=== PATIENT | male | born 1955 | race Caucasian/White ===

== ENCOUNTER 2017-07-08 07:35 | Outpatient (CLI) | payer MEDICARE, OTHER | END 2017-07-08 07:36 | disposition home or self-care (01) | LOC: LAB.F 07:35 | PROVIDERS: ATTEND Physician Assistant | DX: E29.1 Testicular hypofunction (principal) | CPT/HCPCS: 36415; 81599; 84153; 84402; 84403 ==

== ENCOUNTER 2017-11-08 06:31 | Emergency (ER) | payer MEDICARE, OTHER ==
[2017-11-08 06:39] VITALS: BP 122/74
--- NOTE | 2017-11-08 07:08 | ED Physician Documentation ---
PD HPI UPPER EXT INJURY - Stated complaint Stated Complaint: R ELBOW INJ - Chief complaint Chief Complaint: Ext Problem - History obtained from History obtained from: Patient - History of Present Illness Location: Right, Elbow Type of injury: Fall (he slipped and fell last night, striking back of elbow mainly. Denies other injury. Significant pain in back of elbow, radiating down to hand and up to shoulder.) Where injury occurred: Home Timing - onset: Last night Timing - details: Abrupt onset, Still present Improved by: No: Rest Worsened by: Moving, Palpating Associated symptoms: Numbness (briefly down to little finger, then improved. Pain still there though.), Swelling (posteriorly). No: Weakness, Discolored Similar symptoms before: Has not had sx before Recently seen: Not recently seen Review of Systems Skin: denies: Abrasion (s), Laceration (s) Neurologic: denies: Focal weakness PD PAST MEDICAL HISTORY - Past Medical History Past Medical History: No Musculoskeletal: None - Past Surgical History Past Surgical History: Yes - Present Medications Home Medications: Ambulatory Orders Medication Instructions Recorded Confirmed Cyclobenzaprine [Flexeril] 10 mg PO TID PRN #20 tablet 12/15/14 HYDROcod/ACETAM 5/325 [[place] 5/325] 1 - 2 ea PO Q6H PRN #15 tablet 12/15/14 Ibuprofen [Motrin] 600 mg PO TID #30 tab 11/08/17 Oxycodone HCl/Acetaminophen 1 each PO Q6H PRN #20 tablet 11/08/17 [Percocet 5-325 mg Tablet] - Allergies Allergies/Adverse Reactions: Allergies Allergy/AdvReac Type Severity Reaction Status Date / Time No Known Drug Allergies Allergy Verified 11/08/17 06:39 - Social History Does the pt smoke?: Yes Smoking Status: Current every day smoker Does the pt drink ETOH?: Yes Does the pt have substance abuse?: No PD ED PE NORMAL - Vitals Vital signs reviewed: Yes - General General: Alert and oriented X 3, No acute distress, Well developed/nourished - HEENT HEENT: Atraumatic - Neck Neck: Supple, no meningeal sign, No bony TTP - Derm Derm: Normal color, Warm and dry - Neuro Neuro: Alert and oriented X 3, No motor deficit, No sensory deficit (can move and feel in wrist and fingers. He can extend at elbow and triceps tendon is firm but tender. Mild bursal effusion posteriorly. Not tender at radial head. ) , Normal speech Results - Vitals Vitals: Vital Signs - 24 hr 11/08/17 06:35 Temperature 36.2 C L Heart Rate 76 Respiratory 16 Rate Blood Pressure 122/74 O2 Saturation 96 Oxygen O2 Source Room air - Rads (name of study) right elbow Radiology: Prelim report reviewed (calcific tendonosis vs small avulsive flecks. Arthritic changes posteriorly. NO fracture. ) PD MEDICAL DECISION MAKING - Sepsis Event Vital Signs: Vital Signs - 24 hr 11/08/17 06:35 Temperature 36.2 C L Heart Rate 76 Respiratory 16 Rate Blood Pressure 122/74 O2 Saturation 96 Oxygen O2 Source Room air Departure - Departure Disposition: 01 Home, Self Care Clinical Impression: Accidental fall Qualifiers: Encounter type: initial encounter Qualified Code(s): W19.XXXA - Unspecified fall, initial encounter Elbow contusion Qualifiers: Encounter type: initial encounter Laterality: right Qualified Code(s): S50.01XA - Contusion of right elbow, initial encounter Condition: Stable Record reviewed to determine appropriate education?: Yes Instructions: ED Contusion Elbow Follow-Up: Sukh Cleaning MD [Credentialed Staff Provider] - [facility] [Provider Group] Prescriptions: Ibuprofen [Motrin] 600 mg PO TID #30 tab Oxycodone HCl/Acetaminophen [Percocet 5-325 mg Tablet] 1 each PO Q6H PRN #20 tablet PRN Reason: Pain Comments: Sling for the elbow as needed for comfort. Gentle range of motion a few times a day. Ibuprofen 3 times a day for the next several days to week. Add Tylenol or Percocet if needed for pain. Recheck if not improved over the next several days to week.
--- NOTE | 2017-11-08 07:16 | XRAY Report ---
Procedure Date: 11/08/2017 Accession Number: [id number] / [id number] Procedure: XR - Elbow 3 View RT CPT Code: FULL RESULT: EXAM: RIGHT ELBOW RADIOGRAPHY EXAM DATE: 11/08/2017 06:57 AM. CLINICAL HISTORY: Injury to right elbow. Fall, pain COMPARISON: None. TECHNIQUE: 3 views. FINDINGS: Bones: Olecranon spur. No fractures or bone lesions. Joints: Normal. No effusion. No subluxation. Soft Tissues: Rounded calcifications adjacent to the lateral epicondylar region and olecranon may represent calcific tendinitis versus soft tissue calcifications less likely acute avulsion . No soft tissue swelling. IMPRESSION: calcific tendinitis versus soft tissue calcification less likely acute avulsion posterior olecranon and lateral epicondyle [facility]
[2017-11-08] MEDS ORDERED: oxyCOD/ACETAMIN 5 MG/325 MG TABLET PO STA (07:32)
[2017-11-08] MEDS ORDERED: IBUPROFEN 600 MG TABLET PO STA (07:32)
== END 2017-11-08 08:19 | disposition home or self-care (01) ==
LOC: ED 06:31
DX: S50.01XA Contusion of right elbow, initial encounter (principal); W10.8XXA Fall (on) (from) other stairs and steps, initial encounter; Y92.009 Unspecified place in unspecified non-institutional (private) residence as the place of occurrence of the external cause
CPT/HCPCS: 73080; 99283; A9270

== ENCOUNTER 2018-05-18 08:11 | Emergency (ER) | payer MEDICARE ==
[2018-05-18] MEDS ORDERED: NAPROXEN 250 MG TABLET PO STA (09:17)
[2018-05-18] MEDS ORDERED: HYDROcod/ACETAM 5/325 MG TABLET PO STA (09:17)
[2018-05-18] MEDS ORDERED: diazePAM 5 MG TABLET PO STA (09:17)
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
[2018-05-18 10:46] VITALS: BP 113/90
== END 2018-05-18 10:46 | disposition home or self-care (01) ==
LOC: ED 08:11
DX: M54.41 Lumbago with sciatica, right side (principal); S76.011A Strain of muscle, fascia and tendon of right hip, initial encounter; V03.90XA Pedestrian on foot injured in collision with car, pick-up truck or van, unspecified whether traffic or nontraffic accident, initial encounter; Y93.01 Activity, walking, marching and hiking; Y92.481 Parking lot as the place of occurrence of the external cause; G89.29 Other chronic pain; Z96.649 Presence of unspecified artificial hip joint; F17.200 Nicotine dependence, unspecified, uncomplicated
CPT/HCPCS: 72100; 73502; 99283; A9270

== ENCOUNTER 2018-06-16 13:31 | Outpatient (CLI) | payer MEDICARE ==
--- NOTE | 2018-06-17 10:36 | MRI Report ---
Reason: PAIN IN RIGHT HIP Procedure Date: 06/16/2018 Accession Number: [id number] / [id number] Procedure: MRI - Hip RT W/O CPT Code: FULL RESULT: EXAM: RIGHT HIP MRI WITHOUT CONTRAST EXAM DATE: 06/16/2018 02:38 PM. CLINICAL HISTORY: Pain in right hip. COMPARISON: Radiographs 05/18/2018. TECHNIQUE: Multiplanar, multisequence T1-weighted and fluid-sensitive, small clopv-no-ecud sequences of the hip and large snano-gl-ptgy sequences of the pelvis without contrast. Other: None. FINDINGS: Bones: Susceptibility artifact from right total hip prosthesis significantly limits evaluation of that region. No gross fracture or bone lesion in the visualized portions. Mild bone marrow edema partially visualized at the lower lumbar facets. Right Hip: Significantly limited evaluation due to artifact from fixation hardware. No large joint effusion or soft tissue fluid collection visualized. Other Joints: Mild degenerative disk and moderate degenerative facet changes partially visualized lower lumbar spine. Mild degenerative changes at the sacroiliac joints. Pubic symphysis unremarkable. No joint effusion of the left hip. Evaluation of the cartilage and labrum limited on these [id number]. Musculature: Mild fatty atrophy in the posterior paraspinous musculature and gluteal musculature. Mild to moderate fatty atrophy and volume loss in the right lucrecia and minimus muscles. Focal fat at the central to posterior aspect gluteus medius muscle at the myotendinous junction, consistent with old high-grade partial-thickness tear. Mild bilateral hamstring tendinopathy, chronic. Narrowing at the ischiofemoral spaces, left greater than right. Pelvic Cavity: Scattered sigmoid diverticula. No free fluid or enlarged lymph node. Other: The visualized sciatic nerves are unremarkable. No bursitis. The subcutaneous tissues are unremarkable. IMPRESSION: 1. Susceptibility artifact from right hip prosthesis significantly limits evaluation of that region. 2. No large right hip joint effusion or soft tissue fluid collection. 3. Mild to moderate fatty atrophy and volume loss in the right gluteus lucrecia and medius muscles with likely old high-grade partial-thickness tear gluteus medius myotendinous junction. 4. Mild bilateral hamstring tendinopathy. [facility] MUSCULOSKELETAL RADIOLOGY SECTION
== END 2018-06-16 13:32 | disposition home or self-care (01) ==
LOC: DI 13:31
PROVIDERS: ATTEND Family Medicine
DX: M62.58 Muscle wasting and atrophy, not elsewhere classified, other site (principal); M67.88 Other specified disorders of synovium and tendon, other site; M25.551 Pain in right hip

== ENCOUNTER 2019-02-18 16:37 | Outpatient (CLI) | payer OTHER, MEDICARE | END 2019-02-18 16:38 | disposition short-term general hospital (02) | LOC: EMS 16:37 | PROVIDERS: ATTEND Surgery | DX: M54.2 Cervicalgia (principal); M54.9 Dorsalgia, unspecified; M25.559 Pain in unspecified hip; V53.5XXA Driver of pick-up truck or van injured in collision with car, pick-up truck or van in traffic accident, initial encounter; Y92.413 State road as the place of occurrence of the external cause | CPT/HCPCS: A0425; A0429 ==

== ENCOUNTER 2019-02-22 09:52 | Outpatient (CLI) | payer OTHER, MEDICARE ==
--- NOTE | 2019-02-23 09:11 | XRAY Report ---
Reason: PAIN IN RT KNEE Procedure Date: 02/22/2019 Accession Number: [id number] / [id number] Procedure: XR - Knee 3 View RT CPT Code: FULL RESULT: EXAM: RIGHT KNEE RADIOGRAPHY EXAM DATE: 02/22/2019 10:05 AM. CLINICAL HISTORY: Pain in right knee. COMPARISON: None. TECHNIQUE: 3 views. FINDINGS: Bones: No fractures detected. Mild osteophytic spurring of the dorsum of the patella and the margins of the tibial plateau. Joints: Mild joint space narrowing of the medial compartment of the knee. Soft Tissues: No soft tissue swelling detected. No suprapatellar joint effusion identified. Vascular calcifications dorsal to the knee. IMPRESSION: Mild degenerative changes at the knee. No fracture detected. [facility]
== END 2019-02-22 09:53 | disposition home or self-care (01) ==
LOC: DI 09:52
PROVIDERS: ATTEND Nurse Practitioner Family
DX: M17.11 Unilateral primary osteoarthritis, right knee (principal)

== ENCOUNTER 2019-04-28 13:15 | Outpatient (CLI) | payer MEDICARE ==
[~2019-04-28 13:15] MED LIST: ALBUTEROL NEB 2.5 MG/3 ML INH SCH
== END 2019-04-28 13:16 | disposition home or self-care (01) ==
LOC: RT 13:15
PROVIDERS: ATTEND Nurse Practitioner Family
DX: R06.00 Dyspnea, unspecified (principal)
CPT/HCPCS: 94060

== ENCOUNTER 2019-05-07 08:46 | Emergency (ER) | payer MEDICARE ==
[2019-05-07] MEDS ORDERED: CYCLOBENZAPRINE 10 MG TABLET PO STA (09:51)
[2019-05-07] MEDS ORDERED: IBUPROFEN 600 MG TABLET PO STA (09:51)
--- NOTE | 2019-05-07 09:52 | XRAY Report ---
Reason: pain/ previous hip replacement. Procedure Date: 05/07/2019 Accession Number: [id number] / [id number] Procedure: XR - Hip w/Pelvis 2-3V RT CPT Code: Final Report FULL RESULT: EXAM: RIGHT HIP RADIOGRAPHY EXAM DATE: 05/07/2019 09:18 AM. CLINICAL HISTORY: Pain/ previous hip replacement. COMPARISON: HIP W/PELVIS 2-3V RT 05/18/2018 9:43 AM. HIP RT W/O 06/16/2018 2:38 PM. TECHNIQUE: 2 views. FINDINGS: Bones: No acute displaced fracture. Questionable lucency in the mid right femur diaphysis measuring 1.7 cm seen only on one radiograph. No periostitis. Joints: Normal alignment of the right hip arthroplasty. Persistent stable lucency adjacent to the femoral component at the level of the trochanter. No progression of lucency. Mild to moderate narrowing of the left hip joint. Normal alignment. Degenerative changes are seen in the lumbar spine. Soft Tissues: Normal. No soft tissue swelling. IMPRESSION: 1. No acute displaced fracture noted. 2. Questionable lucency seen only on 1 radiograph measuring 1.7 cm in the mid right femur diaphysis. Correlate for region of pain. Recommend dedicated right femur radiographs. No obvious periostitis or soft tissue mass. 3. Normal alignment of the right hip arthroplasty. Persistent lucency adjacent to the femoral prosthesis component at the level of the trochanters is unchanged. No progressive lucency to suggest progressive loosening. 4. Mild to moderate left hip arthritis. Normal limit. [facility]
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
--- NOTE | 2019-05-07 11:16 | XRAY Report ---
Reason: questionable lucency seen Procedure Date: 05/07/2019 Accession Number: [id number] / [id number] Procedure: XR - Femur 2V RT CPT Code: Final Report FULL RESULT: EXAM: RIGHT FEMUR RADIOGRAPHY EXAM DATE: 05/07/2019 10:42 AM. CLINICAL HISTORY: Questionable lucency seen. COMPARISON: HIP W/PELVIS 2-3V RT 05/07/2019 9:07 AM. TECHNIQUE: 2 views. FINDINGS: Bones: No acute displaced fracture is noted. Unable to reproduce possible lucency in the mid right femur as seen on the recent hip radiograph. No definite lytic lesion, accompanying soft tissue mass or cortical breakthrough. Joints: Status post right hip arthroplasty. Mild stable lucency adjacent to the proximal right femur prosthesis component. Soft Tissues: Normal. No soft tissue swelling. IMPRESSION: 1. No acute fracture. 2. No radiographic confirmation of the questionable lucency in the mid right femur. No definite lytic lesion, cortical breakthrough or mass. 3. Right hip arthroplasty with persistent lucency adjacent to the proximal femur component. Loosening is on the differential. Follow clinically. [facility]
[2019-05-07 12:16] VITALS: BP 135/77
== END 2019-05-07 12:16 | disposition home or self-care (01) ==
LOC: ED 08:46
DX: M25.551 Pain in right hip (principal); M54.5 Low back pain; R93.6 Abnormal findings on diagnostic imaging of limbs; F17.200 Nicotine dependence, unspecified, uncomplicated
CPT/HCPCS: 73502; 73552; 99284; A9270

== ENCOUNTER 2019-07-18 10:12 | Outpatient (CLI) | payer MEDICARE ==
--- NOTE | 2019-07-18 11:06 | XRAY Report ---
Reason: COUGH Procedure Date: 07/18/2019 Accession Number: [id number] / [id number] Procedure: XR - Chest 2 View X-Ray CPT Code: 97874 Final Report FULL RESULT: EXAM: CHEST RADIOGRAPHY EXAM DATE: 07/18/2019 10:23 AM. CLINICAL HISTORY: Cough. COMPARISON: CHEST 2 VIEW PA/LAT 01/10/2016 9:18 AM. TECHNIQUE: 2 views. FINDINGS: Lungs/Pleura: No focal opacities evident. No pleural effusion. No pneumothorax. Normal volumes. Mediastinum: Heart and mediastinal contours are unremarkable. Other: None. IMPRESSION: No acute consolidations identified. [facility]
== END 2019-07-18 10:13 | disposition home or self-care (01) ==
LOC: DI 10:12
PROVIDERS: ATTEND Nurse Practitioner Family
DX: R05 Cough (principal)
CPT/HCPCS: 71046

== ENCOUNTER 2019-09-27 09:16 | Outpatient (CLI) | payer MEDICARE ==
--- NOTE | 2019-09-28 03:02 | XRAY Report ---
Reason: PAIN IN LT ANKLE AND FOOT Procedure Date: 09/27/2019 Accession Number: [id number] / [id number] Procedure: XR - Ankle 3 View LT CPT Code: Final Report FULL RESULT: EXAM: LEFT ANKLE RADIOGRAPHY EXAM DATE: 09/27/2019 09:21 AM. CLINICAL HISTORY: PAIN IN LT ANKLE AND FOOT. COMPARISON: None. TECHNIQUE: 3 views. FINDINGS: Bones: Old healed fracture in the shaft of the tibia. Metal plate and screws in the first metatarsal. There are 2 screws in the calcaneus. No acute fracture seen. No focal area of bone destruction. Joints: No dislocation seen. Ankle mortise appears intact. Mild degenerative joint disease in the ankle. No joint effusion identified. Soft Tissues: Grossly unremarkable. IMPRESSION: 1. No acute fracture or dislocation seen in the ankle. Mild degenerative changes are noted. [facility]
== END 2019-09-27 09:17 | disposition home or self-care (01) ==
LOC: DI 09:16
PROVIDERS: ATTEND Nurse Practitioner Family
DX: M19.072 Primary osteoarthritis, left ankle and foot (principal)

== ENCOUNTER 2019-12-21 09:42 | Outpatient (CLI) | payer MEDICARE ==
--- NOTE | 2019-12-21 10:40 | XRAY Report ---
PROCEDURE: Finger(s) LT INDICATIONS: PAIN IN LT THUMB TECHNIQUE: AP hand, 3 views of the left first finger(s) acquired. COMPARISON: None FINDINGS: Moderate osteoarthritic changes in the first carpometacarpal joint, characterized by joint space narr owing, marginal osteophytosis, and subchondral sclerosis. There is also mild lateral/radial subluxati on of the first metacarpal. Mild rostrocaudal changes are present in the second carpal metacarpal jono nt and the triscaphe joint. There is adjacent soft tissue swelling about the first CMC. No acute finding. IMPRESSION: Moderate first CMC osteoarthritis. Mild second CMC and triscaphe osteoarthritis. Reviewed by: Maxwell Calvillo MD on 12/21/2019 10:39 AM PDT Approved by: Maxwell Calvillo MD on 12/21/2019 10:39 AM PDT Station ID: [id number]
== END 2019-12-21 09:43 | disposition home or self-care (01) ==
LOC: LAB 09:42 → DI 09:43
PROVIDERS: ATTEND Physician Assistant
DX: M18.12 Unilateral primary osteoarthritis of first carpometacarpal joint, left hand (principal); M19.042 Primary osteoarthritis, left hand
CPT/HCPCS: 36415; 73140; 85651; 86140

== ENCOUNTER 2020-06-26 09:53 | Outpatient (CLI) | payer MEDICARE, OTHER ==
--- NOTE | 2020-06-26 10:21 | XRAY Report ---
PROCEDURE: Ribs w/PA Chest RT INDICATIONS: RIB PAIN,FALL ONTO RT FLANK TECHNIQUE: 2 views of the right ribs were acquired, along with a single view chest. COMPARISON: Two-view chest 07/18/2019. FINDINGS: Surgical changes and devices: Prior cervical fusion devices anteriorly.. Bones and chest wall: No fractures or dislocations. No suspicious bony lesions. Overlying soft tis sues appear unremarkable. Lungs and pleura: No pleural effusions or pneumothorax. Lungs appear clear on the left but there is an abnormal finding on the right comprised of at least airspace disease if not central mass lesion i nvolving the right upper and middle thirds of the lung parenchyma. The appearance would not be expect ed from trauma. There is a small lung base posterior pleural effusion on the right.. Mediastinum: Mediastinal contours appear normal. Heart size is normal. IMPRESSION: No acute trauma found but there is concern for possible mass lesion with adjacent retention of pulmon ronel secretions involving the medial right mid and upper lung, with associated small right subpulmonic effusion. CT scanning with contrast likely is warranted at this time. Reviewed by: Shad Mohamud MD on 06/26/2020 10:19 AM PST Approved by: Shad Mohamud MD on 06/26/2020 10:19 AM PST Station ID: [id number]
== END 2020-06-26 09:54 | disposition home or self-care (01) ==
LOC: DI 09:53
PROVIDERS: ATTEND Family Medicine
DX: R07.81 Pleurodynia (principal)

== ENCOUNTER 2020-06-27 06:44 | Outpatient (CLI) | payer MEDICARE ==
[2020-06-27] MEDS ORDERED: IOVERSOL 320 100 ML VIAL IVP ONE ×2 (07:55→08:28)
[2020-06-27 07:58] LABS: ALBUMIN 3.5 g/dL (3.2-5.5); ALBUMIN/GLOBULIN RATIO 0.9 (1.0-2.2); BILIRUBIN,TOTAL 1.2 mg/dL (0.2-1.0); CREATININE 0.8 mg/dL (0.6-1.2); TOTAL PROTEIN 7.2 g/dL (6.7-8.2)
--- NOTE | 2020-06-27 10:41 | CT Report ---
PROCEDURE: CHEST W INDICATIONS: RT UPPER LUNG MASS CONTRAST: IV CONTRAST: Optiray 320 ml: 100 PO CONTRAST: *NO PO CONTRAST TECHNIQUE: After the administration of intravenous contrast, 5 mm thick sections acquired from the pulmonary api caleb to the posterior costophrenic angles. 7 mm thick coronal MIP reformats were acquired. For radia tion dose reduction, the following was used: automated exposure control, adjustment of mA and/or kV according to patient size. COMPARISON: CXR 06/26/2020, 07/18/2019. FINDINGS: Image quality: Excellent. Lungs and pleura: Right hilar mass measuring 8.7 x 7.6 cm, (3/29). There is confluent bulky adenopathy. There is a cent ral calcification. The mass narrows the right pulmonary artery branches, superior vena cava, and enca ses the superior right pulmonary vein. The lesion narrows the right upper lobe bronchus. Right perihilar consolidative opacity concerning for obstructive pneumonia. Trachea is clear. Interlo bular septal thickening in the right upper lobe. Moderate emphysematous change. Right upper lobe ante rior pleural thickening, (3/). Small pulmonary nodules bilaterally. For example: -Right upper lobe 1.1 cm, (4/167). Additional calcified nodule in the right upper lobe. -Right upper lobe 1 cm, (4/161). -Right middle lobe oblong shaped nodule 0.6 cm, (4/184). -Left upper lobe 0.5 cm, (4/140). -Left lung base 0.5 cm, (4/267). Small right pleural effusion. No pneumothorax. No effusion on the left. Mediastinum: Heart size is normal. Small pericardial effusion. Bulky mediastinal and hilar adenopath y. Supraclavicular adenopathy. Bilateral axillary adenopathy. For example: -Right anterior to brachiocephalic vein measuring at 2.5 x 1.8 cm, (3/18). -Subcarinal measuring 3.2 x 2.6 cm. -Left supraclavicular 2.4 x 1.3 cm, (3/4). Thoracic aorta and central pulmonary arteries are normal in size. No central pulmonary embolism demon strated. Esophagus is normal in caliber. No hiatal hernia. Bones and chest wall: No suspicious bony lesions. No vertebral body compression fractures. Prior le ft-sided posterior rib fractures. Thyroid gland is unremarkable. ACDF partially visualized. Abdomen: Numerous hypodense hepatic lesions consistent with metastatic disease. Small retroperitoneal nodes, (3/72). Spleen has a heterogeneous appearance. No adrenal nodule. IMPRESSION: 1. Large right hilar mass measuring 8.7 cm. Lesion narrows the right pulmonary artery, SVC, and right upper lobe bronchus. 2. Bulky mediastinal, bilateral supraclavicular and axillary, and probable retroperitoneal adenopathy . 3. Right upper lobe consolidative opacity most compatible with post obstructive pneumonia. 4. Multiple scattered pulmonary nodules bilaterally and right apex pleural thickening suspicious for metastatic disease. 5. Numerous hypodense hepatic lesions consistent with metastatic disease. -Dedicated CT abdomen and pelvis with IV contrast would be helpful to define the extent of disease be low the diaphragm. 6. No osseous lesions identified. Reviewed by: Senthil Guerra MD on 06/27/2020 10:40 AM [facility] Approved by: Senthil Guerra MD on 06/27/2020 10:40 AM [facility] Station ID: [id number]
== END 2020-06-27 06:45 | disposition home or self-care (01) ==
LOC: LAB 06:44 → DI 06:45
PROVIDERS: ATTEND Family Medicine
DX: R91.8 Other nonspecific abnormal finding of lung field (principal); K76.9 Liver disease, unspecified
CPT/HCPCS: 36415; 71260; 80053; Q9967

== ENCOUNTER 2020-07-16 13:45 | Outpatient (CLI) | payer MEDICARE, MEDICAID ==
--- NOTE | 2020-07-16 17:17 | CONSULTATION NOTE ---
Palliative Care Consultation - Referral Referring Provider: Dr. Kasi Saleem Time of Visit: [id number]; record review 15 = 60 minutes Referral setting: [facility] [place] Reason: Pain of neoplastic origin/Lung CA with mets/Pal Care - Information Sources Records reviewed: Previous records reviewed History/Review of Systems obtained from: Patient, Family ( Mercedez present) Exam limitations: No limitations - History of Present Illness Brief History of Present Illness: This is a [place] 65-year-old gentleman who had presented to his primary care office on 06/24/2020 status post fall on his right flank, and pain in his T5-T6 vertebral area,, concern regarding broken ribs. They did get a chest x-ray performed on 06/26/2020 with out any acute rib fracture but was discovered to have a right sided mass lesion. Underwent a CT scan on 06/27/2020 and fortunately showed a right hilar mass measuring 8.7 x 7.6 cm with bulky ad enopathy, with concern for the lesion narrowing the right pulmonary artery, SVC, and right upper lobe bronchus. Patient also was shown to have numerous hypodense hepatic lesions consistent with metastatic disease, and has been undergoing a work-up. He did have a port placed last Wednesday, as well as a brain MRI, and liver biopsy. He is meeting with his oncologist tomorrow, with the hope to get the results of the test, and start chemotherapy. He does understand the seriousness of his illness, but is hoping he has some options. Patient's presents with fairly significant symptom burden increased difficulty with swallowing, worsening shortness of breath, he was able to get oxygen yesterday, which has helped with the sensation of breathlessness. He has been having escalating pain in his chest area radiating across the back thoracic area, low back area radiating down his right leg, and diffuse abdominal pain in including the right upper side radiating across abdomen as well. He also has pain radiating up his right neck area, and intermittent sharp shooting headache. He has experienced vision changes. He has had rapid weight loss from 190 to 168 over the last 2 to 3 weeks. Needless to say he and his family are feeling somewhat overwhelmed, as his general health previously was fairly good. He has had some chronic back pain, insomnia, known COPD, and some arthritis but otherwise has had very little encounters with the healthcare system. He did have hip surgery in 2009, and neck surgery in 2013. He is meeting with palliative care [employer] today, his immediate concern his his escalating pain, shortness of breath, weight loss, anxiety and worsening quality of life. He does rate his pain a 10 out of 10. He has been taking his OxyContin 20 mg every 6 hours, alternating with oxycodone 10 mg with only moderate pain relief, for a total of 140 mg of oxycodone total in 24 hours. Medical/Surgical History - Past Medical History Cardiovascular: reports: None Respiratory: reports: COPD, Shortness of breath Neuro: Headaches Endocrine/Autoimmune: reports: None GI: reports: GERD : reports: Benign prostate hypertrophy HEENT: reports: None Psych: reports: None Musculoskeletal: reports: Chronic back pain Derm: reports: None MRSA Hx?: No - Past Surgical History General: reports: Other (port placement 07/12) Ortho: reports: Hip replacement, Other (neck surg) - Substance History Use: Uses substance without health or social issues: Tobacco (previously but quit), Alcohol (rare) Social History - Living Situation Living arrangement: At home Living Situation: With spouse/s.o. Support System: Patient is here with his Mercedez, they came to [facility] in 1985, to care for his parents. They have 2 boys, one in [place] and one umbilical tail, as well as 3 grandchildren. He was an aircraft captain, he likes to fish, [place] They have multiple friends and feel like they have good community support. Family History - Family History Family History: Mother: (organ failure 68), COPD/Emphysema (age 86), Father: Medications/Allergies - Medications Home Medications: Ambulatory Orders Medication Instructions Recorded Confirmed traZODone [Desyrel] 50 mg PO DAILY 07/03/20 07/16/20 Omeprazole Magnesium 20 mg PO DAILY PRN 07/16/20 07/16/20 Oxycodone HCl 10 mg PO Q3HR PRN 07/16/20 07/16/20 Oxycodone HCl [Oxycontin] 40 mg PO TID 07/16/20 07/16/20 Senna [Senokot] 2 tab PO TID MDD titrate to effect 07/16/20 07/16/20 polyethylene glycoL 3350 [Miralax] 17 gm PO DAILY 07/16/20 07/16/20 - Allergies Allergies/Adverse Reactions: Allergies Allergy/AdvReac Type Severity Reaction Status Date / Time morphine Allergy Rash Verified 07/05/20 10:17 Review of Systems - Constitutional Constitutional: reports: Fatigue, Weakness, Weight loss (190 to 168 over two weeks). denies: Fever, Chills - Eyes Eyes: reports: Blurred vision, Vision loss - Ears, Nose & Throat Ears, Nose & Throat: reports: Dry mouth - Cardiovascular Cardiovascular: reports: Chest pain (relate to tumor), Edema (trace edema in ankles), Exertional dyspnea, Decr. exercise tolerance, Orthopnea (sleeps part of night in recliner) - Respiratory Respiratory: reports: Cough (worse when lays down), Orthopnea, SOB at rest, SOB with exertion, Other (newly on oxygen) - Gastrointestinal Gastrointestinal: reports: Constipation, Poor appetite, Early satiety, Other (taste changes). denies: Nausea - Genitourinary Genitourinary: reports: Frequency - Musculoskeletal Musculoskeletal: reports: Muscle pain, Back pain, Muscle aches, Stiffness, Limited range of motion, Muscle weakness, Assistive devices (has walker at home) - Integumentary Integumentary: reports: Dryness, Other (bruising with portacath placement) - Neurological Neurological: reports: General weakness, Headache (fleeting), Abnormal gait (balance issues) - Psychiatric Psychiatric: reports: Anxiety - Hematologic/Lymphatic Hematologic/Lymph: reports: Bruising. denies: Recurrent infections - All Other Systems All Other Systems: reports: Reviewed and negative Physical Exam - Vital Signs Pulse Rate: 99 Respiratory Rate: 20 O2 Saturation: 91 (91 on 2 liters at rest) Blood Pressure: 136/64 - Physical Exam General Appearance: positive: Alert, Moderate distress Eyes Bilateral: positive: Other (closes eyes frequently; having vision changes) ENT: positive: ENT inspection nml Neck: positive: Trachea midline Cardiovascular: positive: Tachycardia Respiratory: positive: Diminished throughout. negative: No respiratory distress (experiencing respiratory effort), Wheezes, Rales, Rhonchi Abdomen: positive: Nml bowel sounds, Tenderness, Distended Skin: positive: Bruising (large extended area of bruising distal to portacath area; reports new; outlined in ink to monitor), Wound (portcath incision with small amount of eschar) Extremities: positive: Pedal edema (trace only in ankles) Neurologic/Psychiatric: positive: Oriented x3, Mood/affect nml, Weakness Palliative Care - POLST Patient has POLST: No Pain: Pain worsening, Location (see HPI), Severity (10/10) Tiredness/Fatigue: Severe (7-10) Drowsiness/Sedation: Severe (7-10) Nausea: None Anorexia: Severe (7-10), Weight loss Dyspnea: Severe (7-10) Depression: Moderate (4-6) Anxiety: Moderate (4-6) Feelings of wellbeing/Perceived Quality of Life: Poor, Worsening Sleep: Sleeps poorly, Variable sleep pattern (needing to sleep in recliner for pain relief/breathing) Constipation: Yes, Opoid induced, Unmanaged Performance Status: Having declining functional status, identifies himself as an ECOG 3. Was able to shower today, but was with significant breathlessness. Did come in wheelchair, is finding between pain and breathlessness his activity tolerance and ability is worsening. - Palliative Care Discussion: Both he and his are overwhelmed, this really came out of nowhere. Patient's underlying health is actually been fairly good. There is just been a rapid series of appointments and tests, which have been very difficult on both of them. They are awaiting their meeting with oncology tomorrow, to find out the results and explore treatment options. They do understand the seriousness of this illness, and are grieving appropriately. Introduced the role of palliative care for providing support and focus on quality of life, will explore advanced care planning further when pain better controlled and treatment plan proposed. Impression and Recommendations - Palliative Care Impression: This is a 65-year-old gentleman who has widely metastatic cancer, suspected of lung origin. He has been receiving tests and imaging to complete staging, with plan to meet with oncology tomorrow. His symptom burden is high, and continues to progress rapidly. Palliative care to provide support for pain and symptom management and anticipatory guidance. Recommendations/Counseling Done: 1. Pain of neoplastic origin. Reviewed patient's current regimen, counseling provided regarding long-acting medications, requiring every 8-10 hour dosing, given patient is still experiencing moderate to severe pain on his current 24 hour dosing of total oxycodone of 140 mg, will titrate up to 40 mg Oxycontin TID. Patient has been scheduling his breakthrough pain medications to use trying to stay on top of her head of the pain, with end of dose failure. We will move oxycodone 10 mg to every 3 hours for breakthrough pain. Counseling provided regarding long and short acting oxycodone. Patient has had pruritus with morphine in the past, will need to avoid as his allergic reaction. 2. Constipation. Patient with little intake, but is experiencing more constipation. Instructed to initiate MiraLAX 1 capful daily, as well as senna concentrate 8.6 mg 2 tabs 3 times a day. Counseled regarding titration of medications with "much" and "push" to be able to titrate to effect. 3. Weight loss. This is multifactorial, including taste changes, anorexia, but also now with increasing swallowing problems of concern for SVC and tumor compression. Patient is following liquids/soft diet but has had almost a 20 pound weight loss over 2 to 3 weeks. 4. Metastatic lung cancer. Patient to meet with oncology, has completed staging and biopsy. Will need treatment plan, but does understand the seriousness of his illness. Hoping that there are some options. Palliative care will follow along for support. 5. Advanced care planning. Patient presents with severe metastatic disease, high symptom burden, rapid functional decline. Introduced the role of palliative care, will meet with them next week for further advance care planning after meeting with oncology for further direction.Also given the difficulty and worsening functional/activity tolerance, will offer her home visit if not receiving infusions to facilitate further conversation and symptom management. 60 minutes with greater than 50% of this done in counseling regarding pain and symptom management, role of palliative care, and anticipatory guidance.
== END 2020-07-16 13:46 | disposition home or self-care (01) ==
LOC: PC 13:45
PROVIDERS: ATTEND Nurse Practitioner Adult Health
DX: Z51.5 Encounter for palliative care (principal); G89.3 Neoplasm related pain (acute) (chronic); C34.90 Malignant neoplasm of unspecified part of unspecified bronchus or lung; C79.9 Secondary malignant neoplasm of unspecified site; K59.00 Constipation, unspecified; R63.4 Abnormal weight loss; R13.10 Dysphagia, unspecified; J44.9 Chronic obstructive pulmonary disease, unspecified; Z87.891 Personal history of nicotine dependence
CPT/HCPCS: 99205

== ENCOUNTER 2020-07-20 22:10 | Outpatient (CLI) | payer MEDICARE, MEDICAID | END 2020-07-20 22:11 | disposition critical access hospital (66) | LOC: EMS 22:10 | PROVIDERS: ATTEND Emergency Medicine | DX: R53.1 Weakness (principal); R06.02 Shortness of breath | CPT/HCPCS: A0425; A0429 ==

== ENCOUNTER 2020-07-20 22:26 | Emergency (ER) | payer MEDICARE, MEDICAID ==
--- NOTE | 2020-07-20 22:34 | ED Physician Documentation ---
PD HPI DYSPNEA - Stated complaint Stated Complaint: SOA, LUNG, LIVER CA - History obtained from History obtained from: Patient, Family (), EMS - History of Present Illness Timing - onset: Today Timing - onset during: Rest, Light activity Timing - duration: Days (/2) Timing - details: Abrupt onset, Still present Inciting event(s): URI (He has had a cough with some sputum production for several weeks. No fever reported.), Other (Recently seen for new diagnosis of metastatic lung disease with metastases to bone and liver. Just seen by oncology this past week. He does not have a POLST in place at this time. Had been having reasonable oxygenation with some dyspnea at home. Abruptly worse today with general weakness/low BP.) Improved by: No: O2 Worsened by: Exertion, Coughing Associated symptoms: Cough. No: Fever, Hemoptysis Similar symptoms before: Has not had sx before (has recent Dx in past several weeks of lung CA with mets. Had not had this degree of dyspnea and general weakness until abrupt onset today.) Recently seen: Clinic (Seen by Oncology regarding starting chemo and poor prognosis; seen [facility] clinic 07/17/20, Dr. Kasi Saleem. Had port placed 07/05/20 her at [facility].) Review of Systems Unable to obtain: AMS (lethargic), Other (some info from his ) Constitutional: denies: Fever Nose: denies: Rhinorrhea / runny nose, Congestion Throat: denies: Sore throat Cardiac: denies: Chest pain / pressure Respiratory: reports: Dyspnea (for several weeks or more, with activity), Cough. denies: Wheezing GI: denies: Abdominal Pain, Vomiting, Diarrhea, Bloody / black stool Neurologic: reports: Generalized weakness. denies: Headache PD PAST MEDICAL HISTORY - Past Medical History Cardiovascular: None Respiratory: COPD, Shortness of breath, Other (lung cancer, new diagnosis, with mets bone and liver) Neuro: Headaches Endocrine/Autoimmune: None GI: GERD : Benign prostate hypertrophy HEENT: None Psych: None Musculoskeletal: Chronic back pain Derm: None - Past Surgical History Past Surgical History: Yes General: Other Ortho: Hip replacement, Other - Present Medications Home Medications: Ambulatory Orders Medication Instructions Recorded Confirmed traZODone [Desyrel] 50 mg PO DAILY 07/03/20 07/21/20 Omeprazole Magnesium 20 mg PO DAILY PRN 07/16/20 07/21/20 Oxycodone HCl 10 mg PO Q3HR PRN 07/16/20 07/21/20 Oxycodone HCl [Oxycontin] 40 mg PO TID 07/16/20 07/21/20 Senna [Senokot] 2 tab PO TID MDD titrate to effect 07/16/20 07/21/20 polyethylene glycoL 3350 [Miralax] 17 gm PO DAILY 07/16/20 07/21/20 - Allergies Allergies/Adverse Reactions: Allergies Allergy/AdvReac Type Severity Reaction Status Date / Time morphine Allergy Rash Verified 07/20/20 22:30 - Living Situation Living Situation: reports: With spouse/s.o. Living Arrangement: reports: At home - Social History Does the pt smoke?: Yes Smoking Status: Former smoker Does the pt drink ETOH?: Yes Does the pt have substance abuse?: No - Family History Family history: denies: CAD, DM - POLST Patient has POLST: No PD ED PE NORMAL - Vitals Vital signs reviewed: Yes - General General: Well developed/nourished. No: Alert and oriented X 3 (somewhat slow to respond. Simple answers due to breathing/conversational dyspnea. Able to follow commands. ) - HEENT HEENT: Pharynx benign. No: Moist mucous membranes - Neck Neck: Supple, no meningeal sign, No adenopathy - Cardiac Cardiac: No: RRR (regular but tachycardic) - Respiratory Respiratory: Other (Tachypneic with pronounced respiratory effort.). No: Clear bilaterally (coarse sounds mostly right. Diffuse exp wheezing. ) - Abdomen Abdomen: Normal bowel sounds, Soft, Non tender, Non distended, No organomegaly - Male Male : Deferred - Rectal Rectal: Deferred - Derm Derm: Warm and dry. No: Normal color (pale generally) - Extremities Extremities: Normal ROM s pain, No edema, No calf tenderness / cord - Neuro Neuro: Alert and oriented X 3, No motor deficit, Normal speech Eye Opening: To Voice Motor: Obeys Commands Verbal: Oriented GCS Score: 14 Results - Vitals Vitals: Vital Signs - 24 hr 07/20/20 07/20/20 07/20/20 22:32 22:38 23:05 Temperature 37.1 C 37.1 C 37.1 C Heart Rate 121 H 125 H 125 H Respiratory 35 H 26 H 41 H Rate Blood Pressure 77/51 L 77/51 L 77/45 L O2 Saturation 91 L 91 L 96 07/20/20 07/20/20 07/20/20 23:30 23:38 23:39 Temperature 37.1 C 37.1 C Heart Rate 121 H 120 H 122 H Respiratory 38 H 34 H 34 H Rate Blood Pressure 90/56 L 70/47 L O2 Saturation 93 94 07/20/20 07/21/20 07/21/20 23:55 00:00 00:07 Temperature 37.1 C 37.1 C 37 C Heart Rate 120 H 127 H 122 H Respiratory 38 H 36 H 33 H Rate Blood Pressure 104/70 114/98 H 88/53 L O2 Saturation 95 93 93 07/21/20 07/21/20 07/21/20 00:31 00:52 01:00 Temperature Heart Rate 120 H 119 H 120 H Respiratory 30 H 23 Rate Blood Pressure 192/84 H 83/55 L O2 Saturation 90 L 92 07/21/20 07/21/20 07/21/20 01:30 02:00 02:25 Temperature 39.0 C H Heart Rate 121 H 121 H 128 H Respiratory 24 30 H 30 H Rate Blood Pressure 83/55 L 93/58 L 90/66 O2 Saturation 92 93 94 07/21/20 07/21/20 07/21/20 02:30 02:43 03:00 Temperature 39 C H 39.2 C H 39.3 C H Heart Rate 127 H 125 H 124 H Respiratory 30 H 30 H 31 H Rate Blood Pressure 87/62 L 92/56 L 86/59 L O2 Saturation 92 91 L 94 Oxygen O2 Source Mechanical ventilator Oxygen Flow Rate 15 - Labs Labs: Laboratory Tests 07/20/20 07/20/20 07/20/20 00:57 22:27 22:27 WBC RBC Hgb Hct MCV MCH MCHC RDW Plt Count MPV Neut # (Auto) Lymph # (Auto) [place] # (Auto) Eos # (Auto) Baso # (Auto) Absolute Nucleated RBC Nucleated RBC % WBC Morphology Platelet Estimate Platelet Morphology RBC Morph Micro Appear D-Dimer > 1050.0 H Bld Gas Analysis Time 0114 Sample Site LEFT RADIAL ABG pH 7.20 L* ABG pCO2 46 H ABG pO2 51 L* ABG HCO3 17.2 L ABG Total CO2 18.6 L ABG O2 Saturation 79 L* ABG Base Excess -10.5 L Peter Test POSITIVE Respiration Rate 18 O2 Delivery Device VENTILATOR Vent Mode SIMV FiO2 100.00 Tidal Volume 500 PEEP 5 Pressure Support Vent 10 Sodium Potassium Chloride Carbon Dioxide Anion Gap BUN Creatinine Estimated GFR (MDRD) Glucose Lactic Acid 7.2 H* Calcium Total Bilirubin AST ALT Alkaline Phosphatase Troponin I High Sens B-Natriuretic Peptide Total Protein Albumin Globulin Albumin/Globulin Ratio Lipase Nasal Adenovirus (PCR) Nasal B. parapertussis DNA (PCR) Nasal Coronavir 229E PCR Nasal Coronavir HKU1 PCR Nasal Coronavir NL63 PCR Nasal Coronavir OC43 PCR Nasal Enterovir/Rhinovir PCR Nasal Influenza B PCR Nasal Influenza A PCR Nasal Parainfluen 1 PCR Nasal Parainfluen 2 PCR Nasal Parainfluen 3 PCR Nasal Parainfluen 4 PCR Nasal RSV (PCR) Nasal B.pertussis DNA PCR Nasal C.pneumoniae (PCR) Jose Human Metapneumo PCR Nasal M.pneumoniae (PCR) Nasal SARS-CoV-2 (PCR) 07/20/20 07/20/20 07/20/20 22:56 22:56 22:56 WBC 12.5 H RBC 3.64 L Hgb 11.4 L Hct 37.2 L MCV 102.2 H MCH 31.3 H MCHC 30.6 L RDW 16.7 H Plt Count 60 L MPV 11.5 H Neut # (Auto) 0.9 L Lymph # (Auto) 11.0 H [place] # (Auto) 0.5 Eos # (Auto) 0.0 Baso # (Auto) 0.1 Absolute Nucleated RBC 1.17 Nucleated RBC % 9.4 WBC Morphology NORMAL APPEARANCE Platelet Estimate DECREASED (<130,000) Platelet Morphology NORMAL APPEARANCE RBC Morph Micro Appear NORMAL APPEARANCE D-Dimer Bld Gas Analysis Time Sample Site ABG pH ABG pCO2 ABG pO2 ABG HCO3 ABG Total CO2 ABG O2 Saturation ABG Base Excess Peetr Test Respiration Rate O2 Delivery Device Vent Mode FiO2 Tidal Volume PEEP Pressure Support Vent Sodium 136 Potassium 5.5 H Chloride 99 L Carbon Dioxide 16 L Anion Gap 21.0 H BUN 70 H Creatinine 2.7 H Estimated GFR (MDRD) 24 L Glucose 72 Lactic Acid Calcium 8.6 Total Bilirubin 5.9 H AST 673 H ALT 283 H Alkaline Phosphatase 426 H Troponin I High Sens 24.9 H* B-Natriuretic Peptide Total Protein 5.6 L Albumin 2.4 L Globulin 3.2 Albumin/Globulin Ratio 0.8 L Lipase 19 L Nasal Adenovirus (PCR) Nasal B. parapertussis DNA (PCR) Nasal Coronavir 229E PCR Nasal Coronavir HKU1 PCR Nasal Coronavir NL63 PCR Nasal Coronavir OC43 PCR Nasal Enterovir/Rhinovir PCR Nasal Influenza B PCR Nasal Influenza A PCR Nasal Parainfluen 1 PCR Nasal Parainfluen 2 PCR Nasal Parainfluen 3 PCR Nasal Parainfluen 4 PCR Nasal RSV (PCR) Nasal B.pertussis DNA PCR Nasal C.pneumoniae (PCR) Jose Human Metapneumo PCR Nasal M.pneumoniae (PCR) Nasal SARS-CoV-2 (PCR) 07/20/20 07/20/20 07/21/20 22:56 23:45 01:12 WBC RBC Hgb Hct MCV MCH MCHC RDW Plt Count MPV Neut # (Auto) Lymph # (Auto) [place] # (Auto) Eos # (Auto) Baso # (Auto) Absolute Nucleated RBC Nucleated RBC % WBC Morphology Platelet Estimate Platelet Morphology RBC Morph Micro Appear D-Dimer Bld Gas Analysis Time Sample Site ABG pH ABG pCO2 ABG pO2 ABG HCO3 ABG Total CO2 ABG O2 Saturation ABG Base Excess Peter Test Respiration Rate O2 Delivery Device Vent Mode FiO2 Tidal Volume PEEP Pressure Support Vent Sodium 139 Potassium 6.1 H* Chloride 101 Carbon Dioxide 19 L Anion Gap 19.0 H BUN 73 H Creatinine 2.8 H Estimated GFR (MDRD) 23 L Glucose 69 L Lactic Acid Calcium 8.2 L Total Bilirubin AST ALT Alkaline Phosphatase Troponin I High Sens B-Natriuretic Peptide 271 H Total Protein Albumin Globulin Albumin/Globulin Ratio Lipase Nasal Adenovirus (PCR) NOT DETECTED Nasal B. parapertussis DNA (PCR) NOT DETECTED Nasal Coronavir 229E PCR NOT DETECTED Nasal Coronavir HKU1 PCR NOT DETECTED Nasal Coronavir NL63 PCR NOT DETECTED Nasal Coronavir OC43 PCR NOT DETECTED Nasal Enterovir/Rhinovir PCR NOT DETECTED Nasal Influenza B PCR NOT DETECTED Nasal Influenza A PCR NOT DETECTED Nasal Parainfluen 1 PCR NOT DETECTED Nasal Parainfluen 2 PCR NOT DETECTED Nasal Parainfluen 3 PCR NOT DETECTED Nasal Parainfluen 4 PCR NOT DETECTED Nasal RSV (PCR) NOT DETECTED Nasal B.pertussis DNA PCR NOT DETECTED Nasal C.pneumoniae (PCR) NOT DETECTED Jose Human Metapneumo PCR NOT DETECTED Nasal M.pneumoniae (PCR) NOT DETECTED Nasal SARS-CoV-2 (PCR) NOT DETECTED 07/21/20 01:12 WBC RBC Hgb Hct MCV MCH MCHC RDW Plt Count MPV Neut # (Auto) Lymph # (Auto) [place] # (Auto) Eos # (Auto) Baso # (Auto) Absolute Nucleated RBC Nucleated RBC % WBC Morphology Platelet Estimate Platelet Morphology RBC Morph Micro Appear D-Dimer Bld Gas Analysis Time Sample Site ABG pH ABG pCO2 ABG pO2 ABG HCO3 ABG Total CO2 ABG O2 Saturation ABG Base Excess Peter Test Respiration Rate O2 Delivery Device Vent Mode FiO2 Tidal Volume PEEP Pressure Support Vent Sodium Potassium Chloride Carbon Dioxide Anion Gap BUN Creatinine Estimated GFR (MDRD) Glucose Lactic Acid 5.6 H* Calcium Total Bilirubin AST ALT Alkaline Phosphatase Troponin I High Sens B-Natriuretic Peptide Total Protein Albumin Globulin Albumin/Globulin Ratio Lipase Nasal Adenovirus (PCR) Nasal B. parapertussis DNA (PCR) Nasal Coronavir 229E PCR Nasal Coronavir HKU1 PCR Nasal Coronavir NL63 PCR Nasal Coronavir OC43 PCR Nasal Enterovir/Rhinovir PCR Nasal Influenza B PCR Nasal Influenza A PCR Nasal Parainfluen 1 PCR Nasal Parainfluen 2 PCR Nasal Parainfluen 3 PCR Nasal Parainfluen 4 PCR Nasal RSV (PCR) Nasal B.pertussis DNA PCR Nasal C.pneumoniae (PCR) Jose Human Metapneumo PCR Nasal M.pneumoniae (PCR) Nasal SARS-CoV-2 (PCR) - Rads (name of study) chest xray Radiology: Prelim report reviewed (Progressive right lung consolidation and diffuse interstitial whitening consistent with mass and pneumonitis.), See rad report PD MEDICAL DECISION MAKING - ED course Complexity details: reviewed results (Chest x-ray shows significant whitening of the right lung without apparent volume loss nor mediastinal deviation. Concern for obstructive pneumonitis versus pneumonia.), re-evaluated patient (The patient's vital signs did stabilize with normotension and adequate oxygenation post intubation and with IV fluids and nor epi. He remained in the ER a significant time initially to consult and try to transfer for intensive care [facility]. They asked for COVID results.), considered differential (Consideration of acute PE versus pneumonia with sepsis versus pneumothorax or effusion given recent port placement. Also consider tumor compression of vessels and lung bronchial.), d/w patient (Affirmed with the patient and his that he does not have a POLST and at this point he would want intubation and pressor support. Discussed the concerns over atelectasis an d tumor compression of vessels and lung versus acute blood clots in the lung versus pneumonia and sepsis.), d/w family () ED course: After the patient's Covid test resulted, we contacted [facility] again and I talked with the network liaison there who accepted. However in the interval time, now the did not have any ICU beds available but her bed control. We redirected attempts to transfer to [facility]. The network liaison/ICU physician there accepted transfer. Finding a destination did cause some delay and transferring the patient by couple of hours. During which time the patient still remained stable though his blood pressure was decreasing and temperature started elevating. He was given acetaminophen. - Critical Care Time(min): 90 Time Includes: Direct patient care, Reassess patient, Document care, Coordinate care, Medical consult, Family consult for tx dec, See progress note Data interpretation: Labs, CXR Procedures included in critical care time: Peripheral IV, Gastric intubation, Ventilator mgmt Procedures excluded from critical care time: Intubation Departure - Departure Disposition: 02 Transfer Acute Care Hosp Clinical Impression: Acute dyspnea, Hypoxia, Lung infiltrate Hypotension Qualifiers: Hypotension type: unspecified hypotension type Qualified Code(s): I95.9 - Hypotension, unspecified Lung cancer, primary, with metastasis from lung to other site Qualifiers: Laterality: right Qualified Code(s): C34.91 - Malignant neoplasm of unspecified part of right bronchus or lung Acute renal failure (ARF) Qualifiers: Acute renal failure type: unspecified Qualified Code(s): N17.9 - Acute kidney failure, unspecified Acute liver failure Qualifiers: Hepatic coma status: without hepatic coma Qualified Code(s): K72.00 - Acute and subacute hepatic failure without coma Condition: Stable Record reviewed to determine appropriate education?: Yes Discharge Date/Time: 07/21/20 03:38
[2020-07-20] MEDS ORDERED: IPRATROPIUM/ALBUTEROL 3 ML NEB INH STA (22:40)
[2020-07-20] MEDS ORDERED: SODIUM CHLORIDE 0.9% 1,000 ML IV STA ×2 (22:40→23:50)
[2020-07-20] MEDS ORDERED: fentaNYL 100 MCG/2 ML VIAL IVP STA (22:42)
[2020-07-20] MEDS ORDERED: IPRATROPIUM/ALBUTEROL 3 ML NEB INH ONE (22:50)
[2020-07-20 23:06] LABS: BASOPHILS # (AUTO) 0.1 10^3/uL (0.0-0.1); BASOPHILS % (AUTO) 0.4 %; EOSINOPHILS % (AUTO) 0.3 %; HCT - HEMATOCRIT 37.2 % (42.0-52.0); HGB - HEMOGLOBIN 11.4 g/dL (14.0-18.0); LYMPHOCYTES % (AUTO) 88.1 %; MEAN CORPUSCULAR HEMOGLOBIN 31.3 pg (27.0-31.0); MEAN CORPUSCULAR HGB CONC 30.6 g/dL (32.0-36.0); MEAN CORPUSCULAR VOLUME 102.2 fL (80.0-94.0); MEAN PLATELET VOLUME 11.5 fL (7.4-11.4); MONOCYTES # (AUTO) 0.5 10^3/uL (0.0-1.0); MONOCYTES % (AUTO) 3.7 %; NEUTROPHILS # (AUTO) 0.9 10^3/uL (1.5-6.6); NEUTROPHILS % (AUTO) 7.2 %; NRBC ABSOLUTE COUNT (AUTO) 1.17 x10^3/uL; NUCLEATED RED BLOOD CELLS AUTO 9.4 /100WBC; PLT - PLATELET COUNT 60 10^3/uL (130-450); RED BLOOD COUNT 3.64 10^6/uL (4.70-6.10); RED CELL DISTRIBUTION WIDTH 16.7 % (12.0-15.0); WHITE BLOOD COUNT 12.5 x10^3/uL (4.8-10.8)
[2020-07-20] MEDS ORDERED: SODIUM CHLORIDE 0.9% 500 ML IV STA (23:11)
[2020-07-20] MEDS ORDERED: ALBUTEROL NEB 2.5 MG/3 ML INH STA (23:12)
[2020-07-20] MEDS ORDERED: cefTRIAXone 1 GM VIAL IVP STA (23:17)
[2020-07-20 23:24] LABS: ALBUMIN 2.4 g/dL (3.2-5.5); ALBUMIN/GLOBULIN RATIO 0.8 (1.0-2.2); BILIRUBIN,TOTAL 5.9 mg/dL (0.2-1.0); CALCIUM 8.6 mg/dL (8.5-10.3); CREATININE 2.7 mg/dL (0.6-1.2); POTASSIUM 5.5 mmol/L (3.5-5.0); TOTAL PROTEIN 5.6 g/dL (6.7-8.2)
[2020-07-20 23:31] LABS: PLATELET ESTIMATE, MANUAL DECREASED (<130,000) (NORMAL); PLATELET MORPHOLOGY NORMAL APPEARANCE (NORMAL); RBC MORPHOLOGY (MULTIPLE) NORMAL APPEARANCE (NORMAL); WBC MORPHOLOGY (MULTIPLE) NORMAL APPEARANCE (NORMAL)
[2020-07-20] MEDS ORDERED: KETAMINE 500 MG/10 ML VIAL IVP STA (23:51)
[2020-07-20] MEDS ORDERED: ALTEPLASE 100 MG in WATER FOR INJECTION,STERILE 100 ML IV STA (23:53)
[2020-07-20] MEDS ORDERED: SUCCINYLCHOLINE 200 MG/10 ML VIAL IVP STA (23:57)
[2020-07-21] MEDS ORDERED: ALTEPLASE 100 MG VIAL ONE (00:22)
[2020-07-21] MEDS ORDERED: LORazepam 2 MG/ML VIAL ONE (00:29)
[2020-07-21] MEDS ORDERED: PROPOFOL 500 MG/50 ML 500 MG/50 ML VIAL IV STA (00:56)
[2020-07-21 01:04] LABS: ABG MODE OF VENTILATION SIMV; ABG RESPIRATORY RATE 18 b/min
[2020-07-21] MEDS ORDERED: AZITHROMYCIN INJ 500 MG in SODIUM CHLORIDE 0.9% 250 ML IV STA (01:11)
[2020-07-21 01:14] LABS: B. PARAPERTUSSIS- RESP PCR PAN NOT DETECTED; B. PERTUSSIS- RESP PCR PANEL NOT DETECTED; C. PNEUMONIAE- RESP PCR PANEL NOT DETECTED; CORONAVIRUS 229E-RESP PCR NOT DETECTED; CORONAVIRUS HKU1-RESP PCR NOT DETECTED; CORONAVIRUS NL63-RESP PCR NOT DETECTED; CORONAVIRUS OC43-RESP PCR NOT DETECTED; HUMAN METAPNEUMOVIRUS NOT DETECTED; INFLUENZA A- RESP PCR PANEL NOT DETECTED; INFLUENZA B - RESP PCR PANEL NOT DETECTED; M. PNEUMONIAE- RESP PCR PANEL NOT DETECTED; PARAINFLUENZA VIRUS 1 NOT DETECTED; PARAINFLUENZA VIRUS 2 NOT DETECTED; PARAINFLUENZA VIRUS 3 NOT DETECTED; PARAINFLUENZA VIRUS 4 NOT DETECTED; RHINOVIRUS/ENTEROVIRUS NOT DETECTED; RSV- RESP PCR PANEL NOT DETECTED; SARS-CoV-2 -RESP PCR PANEL NOT DETECTED
[2020-07-21 01:16] LABS: ABG PCO2 46 mmHg (34-45)
[2020-07-21 01:17] LABS: ABG BASE EXCESS -10.5 mmol/L (-2.0-3.0); ABG HCO3 17.2 mmol/L (22.0-26.0); ABG TCO2 18.6 MMOL/L (21.0-29.0); ALLEN TEST POSITIVE
[2020-07-21 01:22] LABS: ABG OXYGEN SATURATION 79 % (94-98); ABG PO2 51 mmHg (80-100)
[2020-07-21 01:33] LABS: CALCIUM 8.2 mg/dL (8.5-10.3); CREATININE 2.8 mg/dL (0.6-1.2)
[2020-07-21 01:34] LABS: POTASSIUM 6.1 mmol/L (3.5-5.0)
[2020-07-21] MEDS ORDERED: DEXTROSE 10% 250 ML IV STA (01:39)
[2020-07-21] MEDS ORDERED: SODIUM BICARBONATE ABBOJECT 50 MEQ/50 ML SYRINGE IVP STA (01:40)
[2020-07-21] MEDS ORDERED: VANCOMYCIN INJ 1.5 GM in SODIUM CHLORIDE 0.9% 500 ML IV STA (01:49)
[2020-07-21] MEDS ORDERED: ACETAMINOPHEN 650 MG SUPP PR STA (02:18)
[2020-07-21 04:39] VITALS: BP 86/59
--- NOTE | 2020-07-21 12:35 | XRAY Report ---
PROCEDURE: Chest 1 View X-Ray INDICATIONS: dyspnea today TECHNIQUE: One view of the chest was acquired. COMPARISON: CT chest 07/10/2020. CXR 06/26/2020, 07/18/2019. FINDINGS: Surgical changes and devices: Right-sided port with the catheter tip at the cavoatrial junction, new compared to prior CT chest. Lungs and pleura: Blunting of the right costophrenic angle likely due to trace effusion. No pneumotho rax. Right lung airspace opacity has progressed compared to June 2020. Left lung is clear. Mediastinum: Right hilar mass seen on prior CT. Adenopathy not well appreciated. Heart size is kaylie l. Bones and chest wall: No suspicious bony lesions. Overlying soft tissues appear unremarkable. IMPRESSION: Progressive post objective pneumonia in the right upper lobe. Right hilar mass. Right-sided port with the catheter tip projecting over the cavoatrial junction. This report is concordant with the overnight preliminary interpretation. Reviewed by: Senthil Guerra MD on 07/21/2020 11:33 AM MATI Approved by: Senthil Guerra MD on 07/21/2020 11:33 AM MATI Station ID: [id number]
--- NOTE | 2020-07-21 12:37 | XRAY Report ---
PROCEDURE: Post ET Tube 1V CXR INDICATIONS: Post ET placement TECHNIQUE: One view of the chest was acquired. COMPARISON: CXR 07/20/2020. CT chest 07/10/2020. FINDINGS: Surgical changes and devices: Newly placed endotracheal tube in the mid trachea. Right-sided port wit h the catheter tip at the cavoatrial junction. ACDF. Lungs and pleura: Suspect trace right pleural effusion. No pneumothorax. Large airspace opacity in th e right upper lobe. Mediastinum: Right hilar mass. Heart size is normal. Bones and chest wall: No suspicious bony lesions. Overlying soft tissues appear unremarkable. IMPRESSION: Endotracheal tube in the mid trachea. Right hilar mass. Similar right post obstructive pneumonia. This report is concordant with the overnight preliminary interpretation. Reviewed by: Senthil Guerra MD on 07/21/2020 11:36 AM MATI Approved by: Senthil Guerra MD on 07/21/2020 11:36 AM MATI Station ID: [id number]
== END 2020-07-21 03:38 | disposition short-term general hospital (02) ==
LOC: EDUNIT# → ED 22:26
DX: C34.91 Malignant neoplasm of unspecified part of right bronchus or lung (principal); C78.7 Secondary malignant neoplasm of liver and intrahepatic bile duct; C79.51 Secondary malignant neoplasm of bone; R06.09 Other forms of dyspnea; R09.02 Hypoxemia; I95.9 Hypotension, unspecified; J44.9 Chronic obstructive pulmonary disease, unspecified; Z87.891 Personal history of nicotine dependence; N17.9 Acute kidney failure, unspecified; K72.00 Acute and subacute hepatic failure without coma; Z20.822 Contact with and (suspected) exposure to COVID-19
CPT/HCPCS: 31500; 36415; 36600; 43753; 51702; 71045; 80048; 80053; 82803; 83605; 83690; 83880; 84484; 85025; 85379; 87040; 87631; 93005; 94640; 96365; 96366; 96367; 96368; 96375; 99291; A9270; J0330; J2060; J2997; J3490; 0202U